=== PATIENT | female | born 1995 | race Caucasian/White ===

== ENCOUNTER 2017-12-24 21:12 | Emergency (ER) | payer OTHER ==
[~2017-12-24] VITALS: Ht 167.6 cm; Wt 72.6 kg
[~2017-12-24 21:12] MED LIST: ALOE VERA TP; AMOX500 PO; CEPH500 PO; HYDACE5 PO; IBUP400 PO; IBUP600 PO; IBUP800 PO; NAPR500 PO; NITR100CA PO; OXYACE5T PO; PARAFON FORTE PO; PENVK500 PO; PHENA200 PO; Prednisone20 MG PO; RALT400 PO; Truvada Tablet1 EACH PO; Verotin-Gr Cap1 EACH PO; Zofran4 MG PO
[2017-12-24] MEDS ORDERED: Verotin-Gr Cap1 EACH PO (21:42)
[2017-12-24] MEDS ORDERED: AMOCLA500 PO (21:42)
== END 2017-12-24 23:52 | disposition home or self-care (01) ==
LOC: ER 21:12
DX: O99.89 Other specified diseases and conditions complicating pregnancy, childbirth and the puerperium (principal); M54.5 Low back pain; Z79.899 Other long term (current) drug therapy; Z87.891 Personal history of nicotine dependence; W01.0XXA Fall on same level from slipping, tripping and stumbling without subsequent striking against object, initial encounter
CPT/HCPCS: 99282

== ENCOUNTER → 2018-02-08 | Outpatient (CLI) | payer SELFPAY ==
[~2018-02-08] MED LIST changes: +AMOCLA500 PO
[2018-02-08 13:24] LABS: Source, Urine Clean Catch
[2018-02-08 14:17] LABS: Blood, Urine 5+ (Neg); Glucose Qualitative, Urine Neg (Neg); Ketones, Urine Neg (Neg); Leukocyte Esterase, Urine 2+ (Neg); Nitrite, Urine Pos (Neg); Protein, Urine 2+ (Neg); Urobilinogen, Urine 3+ (Normal); pH, Urine 6.5 (5.0-8.0)
[2018-02-08 14:39] LABS: Appearance, Urine Clear (Clear); Color, Urine Orange (P-Yellow)
[2018-02-08 14:42] LABS: Bacteria Few /hpf; Red Blood Cells, Urine TNTC /hpf (0-2); Squamous Epithelial Cells Not Seen /hpf (Few); WBC Cast 0-2 /lpf (0); White Blood Cells, Urine TNTC /hpf (0-5)
== END | disposition home or self-care (01) ==
LOC: LAB EV 13:22 → LAB SHORT 13:22
PROVIDERS: Obstetrics & Gynecology
DX: R30.0 Dysuria (principal)
CPT/HCPCS: 81001; 87077; 87086; 87186

== ENCOUNTER → 2023-08-10 | Outpatient (CLI) | payer OTHER ==
[~2023-08-10] MED LIST changes: +BUSP15 PO; +Percocet 5-3251 EACH PO
[2023-08-11 12:44] LABS: Candida species (DNA Probe) Negative (NEGATIVE); G. vaginalis (DNA Probe) Positive (NEGATIVE); T. vaginalis (DNA Probe) Negative (NEGATIVE)
[2023-08-14 09:29] LABS: APTIMA MEDIA TYPE Unisex Swab; C. TRACHOMATIS BY TMA Negative (Negative); N. GONORRHOEAE BY TMA Positive (Negative); SPECIMEN SOURCE Vaginal
== END ==
LOC: LAB SHORT 15:12 → LAB 15:12
PROVIDERS: Family Medicine
DX: Z01.419 Encounter for gynecological examination (general) (routine) without abnormal findings (principal); Z11.3 Encounter for screening for infections with a predominantly sexual mode of transmission; N76.0 Acute vaginitis
CPT/HCPCS: 87480; 87491; 87510; 87591; 87660